=== PATIENT | female | born 1990 | race Caucasian/White ===

== ENCOUNTER 2016-11-12 10:17 | Emergency (ER) | payer MEDICAID ==
[2016-11-12 11:13] VITALS: BP 128/74
--- NOTE | 2016-11-12 12:02 | UC ---
Throat Pain/Nasal Josué HPI - HPI Summary HPI Summary: NASAL CONGESTION X 2 WEEKS\ + SINUS PAIN AND PRESSURE , PND, NO FEVER, NO CHILLS - History of Current Complaint Chief Complaint: UCRespiratory Stated Complaint: COUGH,CONGESTION Time Seen by Provider: 11/12/16 11:54 Hx Obtained From: Patient Hx Last Menstrual Period: 11/10/16 ?: No Onset/Duration: Gradual Onset, Lasting Weeks - 2, Still Present Severity: Moderate Cough: Nonproductive Associated Signs & Symptoms: Positive: Sinus Discomfort, Nasal Discharge. Negative: Fever - Allergies/Home Medications Allergies/Adverse Reactions: Allergies Allergy/AdvReac Type Severity Reaction Status Date / Time Amoxicillin [From Augmentin] Allergy Hives Verified 11/12/16 11:13 Aspirin Allergy Swelling Verified 11/12/16 11:13 Of Face,Lips,& Throat Clavulanic Acid Allergy Hives Verified 11/12/16 11:13 [From Augmentin] Hydrocodone Allergy Hives Verified 11/12/16 11:13 PMH/Surg Hx/FS Hx/Imm Hx Previously Healthy: Yes - Surgical History Surgical History: Yes Surgery Procedure, Year, and Place: LEEP. Essure - Family History Known Family History: Negative: Diabetes - Social History Alcohol Use: None Substance Use Type: None Smoking Status (MU): Heavy Every Day Tobacco Smoker Amount Used/How Often: 1/2 ppd Length of Time of Smoking/Using Tobacco: started age 10 Review of Systems Constitutional: Negative Skin: Negative Eyes: Negative ENT: Sore Throat, Nasal Discharge Respiratory: Cough Cardiovascular: Negative Gastrointestinal: Negative All Other Systems Reviewed And Are Negative: Yes Physical Exam Triage Information Reviewed: Yes Appearance: Well-Appearing, No Pain Distress, Well-Nourished Vital Signs: Initial Vital Signs Temp 98.7 F 11/12/16 11:08 Pulse 89 11/12/16 11:08 Resp 16 11/12/16 11:08 BP 128/74 11/12/16 11:08 Pulse Ox 100 11/12/16 11:08 Vital Signs Reviewed: Yes Eyes: Positive: Conjunctiva Clear ENT: Positive: Normal ENT inspection, Hearing grossly normal, Pharyngeal erythema, Nasal congestion, Nasal drainage, TMs normal Neck exam: Normal Neck: Positive: Supple, Nontender, No Lymphadenopathy Respiratory: Positive: Chest non-tender, Lungs clear, Normal breath sounds, No respiratory distress Cardiovascular: Positive: RRR, No Murmur, Pulses Normal Abdominal Exam: Normal Skin Exam: Normal Throat Pain/Nasal Course/Dx - Differential Dx/Diagnosis Provider Diagnoses: SINUSITIS Discharge - Discharge Plan Condition: Stable Disposition: HOME Prescriptions: Azithromycin TAB* [Zithromax TAB (Z-MARIANN) 250 mg #6 tabs] 2 tab PO .TODAY, THEN 1 DAILY #1 mariann Patient Education Materials: Sinusitis (ED) Forms: *Work Release Referrals: Ag Betts MD [Primary Care Provider] - If Needed
== END 2016-11-12 12:13 | disposition home or self-care (01) ==
LOC: UCCORT 10:17
DX: J32.9 Chronic sinusitis, unspecified (principal); R05 Cough; F17.210 Nicotine dependence, cigarettes, uncomplicated; Z88.5 Allergy status to narcotic agent; Z88.1 Allergy status to other antibiotic agents; Z88.6 Allergy status to analgesic agent
CPT/HCPCS: 99202; G0463

== ENCOUNTER 2019-10-09 08:09 | Emergency (ER) | payer BC, OTHER ==
[2019-10-09 08:29] VITALS: BP 107/68
--- NOTE | 2019-10-09 08:53 | UC ---
Neck Pain HPI - HPI Summary HPI Summary: neck pain x 5 days pain is 4 out of 10 , radiating down the spine worse with neck movement , better with heat, rest, no known injury , no numbness , no tingling of the upper ext. - History of Current Complaint Chief Complaint: UCUpperExtremity Stated Complaint: RT SIDE NECK TO SHOULDER PAIN Time Seen by Provider: 10/09/19 08:24 Hx Obtained From: Patient Hx Last Menstrual Period: 11/10/16 ?: No Onset/Duration Of Injury/Symptoms: Days - 5 Mechanism Of Injury: No Known Trauma Timing: Constant Onset/Duration: Gradual Onset, Lasting Days - 5, Still Present Severity: Moderate Pain Intensity: 4 Location: Discrete At: - righ side of neck Character: Aching, Stiff, Spasmotic Aggravating Factors: Position, Movement Alleviating Factors: Heat Associated Signs & Symptoms: Negative: Swelling, Redness, Bruising, Fever, Nuchal Rigity, Weakness, Headache, Paresthesia - Allergies/Home Medications Allergies/Adverse Reactions: Allergies Allergy/AdvReac Type Severity Reaction Status Date / Time amoxicillin [From Augmentin] Allergy Hives Verified 10/09/19 08:17 aspirin Allergy Swelling Verified 10/09/19 08:17 Of Face,Lips,& Throat clavulanic acid Allergy Hives Verified 10/09/19 08:17 [From Augmentin] hydrocodone Allergy Hives Verified 10/09/19 08:17 Home Medications: Home Medications Acetaminophen [Tylenol Arthritis] 1 tab PO ONCE 10/09/19 [History Confirmed 05/21] Desmopressin TAB (NF) 0.2 mg PO QPM 10/09/19 [History Confirmed 10/09/19] Ibuprofen TAB* [Advil TAB*] 2 tab PO ONCE 10/09/19 [History Confirmed 10/09/19] PMH/Surg Hx/FS Hx/Imm Hx - Additional Past Medical History Additional PMH: cervical dysplasia - Surgical History Surgical History: Yes Surgery Procedure, Year, and Place: LEEP. Essure. hysterectomy. endometriosis - Family History Known Family History: Negative: Diabetes - Social History Alcohol Use: None Substance Use Type: None Smoking Status (MU): Heavy Every Day Tobacco Smoker Amount Used/How Often: 1 ppd Length of Time of Smoking/Using Tobacco: started age 10 Review of Systems All Other Systems Reviewed And Are Negative: Yes Is Patient Immunocompromised?: No Physical Exam Triage Information Reviewed: Yes Appearance: Well-Appearing, Well-Nourished, Pain Distress Vital Signs: Initial Vital Signs Temp 98.7 F 10/09/19 08:24 Pulse 87 10/09/19 08:24 Resp 15 10/09/19 08:24 BP 107/68 10/09/19 08:24 Pulse Ox 97 10/09/19 08:24 Vital Signs Reviewed: Yes Eye Exam: Normal Eyes: Positive: Conjunctiva Clear ENT: Positive: Normal ENT inspection, Hearing grossly normal, Pharynx normal Neck: Positive: Tenderness @ - right side, Other: - limited ROM on rotation to right , pain with neck movement Neck Pain Course/Dx - Differential Dx/Diagnosis Provider Diagnosis: Neck strain Discharge ED - Sign-Out/Discharge Documenting (check all that apply): Patient Departure All imaging exams completed and their final reports reviewed: No Studies - Discharge Plan Condition: Stable Disposition: HOME Prescriptions: Cyclobenzaprine TAB* [Flexeril 10 MG TAB*] 10 mg PO BID #20 tab Naproxen [Naproxen 500 mg tab] 500 mg PO BID #20 tablet Patient Education Materials: Acute Neck Pain (ED) Referrals: Ag Betts MD [Primary Care Provider] - 7 Days - Billing Disposition and Condition Condition: STABLE Disposition: Home
== END 2019-10-09 08:51 | disposition home or self-care (01) ==
LOC: UCCORT 08:09
DX: S16.1XXA Strain of muscle, fascia and tendon at neck level, initial encounter (principal); F17.210 Nicotine dependence, cigarettes, uncomplicated; Z88.0 Allergy status to penicillin; Z88.6 Allergy status to analgesic agent; Z88.5 Allergy status to narcotic agent; X58.XXXA Exposure to other specified factors, initial encounter; Y92.9 Unspecified place or not applicable
CPT/HCPCS: 99212; G0463

== ENCOUNTER 2019-11-16 09:38 | Emergency (ER) | payer OTHER ==
--- OUTSIDE RECORDS SUMMARY | 2019-11-16 09:50 | XMS REPORT ---
:1990 Author Organization [facility] Address [address] [place] [address] Care Team Providers Name Role Phone Ashlyn Mcdonough Unavailable Unavailable PROBLEMS Type Condition ICD9-CM [id number] Onset Condition SNOMED Code Code Code Dates Status Problem Tobacco abuse Z71.6 Active 804692985 counseling Problem Family history of Z80.3 Active 227816771 malignant neoplasm of breast Problem Excessive and N92.1 Active 60371923 frequent menstruation with irregular cycle Problem Primary N94.4 Active 58876698 dysmenorrhea Problem Endometriosis of N80.3 Active 825028911 pelvic peritoneum Problem 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 Problem Periumbilical pain R10.33 Active 908078820 Problem Unspecified N83.201 Active 58127034475799151 ovarian cyst, right side Problem Pelvic and R10.2 Active 661472640 perineal pain Problem 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 Problem Other mechanical T85.698A Active 881659978 complication of other specified internal prosthetic devices, implants and grafts, initial encounter Problem Cervical high risk R87.810 Active 626550531628245 human papillomavirus (HPV) DNA test positive Problem Urge incontinence N39.41 Active 18327117 Problem Other specified N89.8 Active 88049159 noninflammatory disorders of vagina Problem Unspecified N83.202 Active 89794913344020443 ovarian cyst, left side ALLERGIES No Information ENCOUNTERS Encounter Location Date Diagnosis [facility] [address] Nov, OBGYN [place] [id number] [facility] [address] Nov, OBGYN [place] [id number] [facility] [address] Sep, [place] [id number] [facility] [address] Aug, OBGYN [place] [id number] [facility] [address] Aug, [facility]39.[facility] and [place] [id number] to malignant neoplasm of ovary Z15.02 [facility] [address] Jun, [place] [id number] [facility] [address] Jun, [place] [id number] [facility] [address] Jun, OBG[place] [id number] [facility] 103 Jun, [facility] [place] [id number] breast Z15.01 ; Other specified noninflammatory disorders of vagina N89.8 and Urge incontinence N39.41 [facility] [address] Mar, Genetic susceptibility to OBGYN [facility], malignant neoplasm [place] [id number] ovary Z15.02 ; 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 ; Excessive and frequent menstruation with irregular cycle N92.1 ; Primary dysmenorrhea N94.4 ; Pelvic and perineal pain R10.2 and Endometriosis of pelvic peritoneum N80.3 [facility] [address] January, [facility] [place] [id number] ovary Z15.02 ; 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 ; Excessive and frequent menstruation with irregular cycle N92.1 ; Primary dysmenorrhea N94.4 ; Pelvic and perineal pain R10.2 and Endometriosis of pelvic peritoneum N80.3 [place] [address] January, Genetic susceptibility to [facility] [place] [place] [id number] malignant neoplasm of ovary Z15.02 ; 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 ; Excessive and frequent menstruation with irregular cycle N92.1 ; Primary dysmenorrhea N94.4 ; Pelvic and perineal pain R10.2 and Endometriosis of pelvic peritoneum N80.3 [facility] Dec, Excessive and frequent OBGYN [facility], menstruation with [place] [id number] irregular cycle N92.1 ; Endometriosis of pelvic peritoneum N80.3 ; Pelvic and perineal pain R10.2 ; 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 ; 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 ; Family history of malignant neoplasm of breast Z80.3 ; Primary dysmenorrhea N94.4 ; Unspecified ovarian cyst, right side N83.201 and Unspecified ovarian cyst, left side N83.202 [facility] 103 Dec, Excessive and frequent OBGYN [facility], menstruation with [place] [id number] irregular cycle N92.1 ; Unspecified ovarian cyst, right side N83.201 and Unspecified ovarian cyst, left side N83.202 [facility] Dec, Excessive and frequent OBGYN [facility], menstruation with [place] [id number] irregular cycle N92.1 ; Primary dysmenorrhea N94.4 ; Pelvic and perineal pain R10.2 and Endometriosis of pelvic peritoneum N80.3 [facility] [address] Dec, OBGYN [place] [id number] [facility] 103 Dec, Excessive and frequent OBGYN [facility], menstruation with [place] [id number] irregular cycle N92.1 ; Endometriosis of pelvic peritoneum N80.3 ; Pelvic and perineal pain R10.2 and 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 [facility] Dec, Family history of [facility], malignant neoplasm [place] [id number] breast Z80.3 ; 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 ; Endometriosis of pelvic peritoneum N80.3 ; Excessive and frequent menstruation with irregular cycle N92.1 ; Primary dysmenorrhea N94.4 and 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 [facility] 103 Nov, Genetic susceptibility to [facility], malignant neoplasm [place] [id number] breast Z15.01 and Family history of malignant neoplasm of breast Z80.3 [facility] [address] Nov, Encounter for [facility] gynecological examination [place] [id number] (general) (routine) with abnormal findings Z01.411 ; Encounter for screening for malignant neoplasm of cervix Z12.4 ; Cervical high risk human papillomavirus (HPV) DNA test positive R87.810 ; Family history of malignant neoplasm of breast Z80.3 ; 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 ; Endometriosis of pelvic peritoneum N80.3 ; Excessive and frequent menstruation with irregular cycle N92.1 and Primary dysmenorrhea N94.4 [facility] 103 Nov, Primary dysmenorrhea N94.4 [facility], ; Excessive and frequent [place] [id number] menstruation with irregular cycle N92.1 and Pelvic and perineal pain R10.2 [facility] [address] Nov, [place] [id number] [facility] [address] Nov, [place] [id number] [facility] [address] Nov, [place] [id number] [facility] 103 Nov, Periumbilical pain R10.33 [facility], and Other specified [place] [id number] irregular menstruation N92.5 [facility] 103 Nov, OBGYN [place] [id number] [facility] 103 Oct, OBGYN [place] [id number] [facility] 103 Oct, Family history of OBGYN [facility], malignant [place]oplasm [place] [id number] breast Z80.3 ; 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 ; Endometriosis of pelvic peritoneum N80.3 ; Excessive and frequent menstruation with irregular cycle N92.1 and Primary dysmenorrhea N94.4 [facility] 103 Oct, [place] [id number] [facility] 103 Jul, OBGYN [place] [id number] [facility] 103 Jul, Family history of OBGYN [facility], malignant [place]oplasm [place] [id number] breast Z80.3 ; 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 ; Endometriosis of pelvic peritoneum N80.3 ; Excessive and frequent menstruation with irregular cycle N92.1 and Primary dysmenorrhea N94.4 [facility] 103 Jul, Genetic susceptibility to OBGYN [facility], malignant [place]oplasm [place] [id number] breast Z15.01 [place] [address] Jun, Endometriosis of [place] [id number] peritoneum N80.3 ; Pelvic and perineal pain R10.2 ; 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 and Primary dysmenorrhea N94.4 [facility] 103 Jun, Genetic susceptibility to OBGYN [facility], malignant [place]oplasm [place] [id number] breast Z15.01 [facility] 103 Jun, Family history of OBGYN [facility], malignant neoplasm [place] [id number] breast Z80.3 ; 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 ; 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4 and Family history of malignant neoplasm of breast Z80.3 [facility] 103 Apr, Excessive and frequent OBGYN [facility], menstruation with [place] [id number] irregular cycle N92.1 ; Other mechanical complication of other specified internal prosthetic devices, implants and grafts, initial encounter T85.698A and Primary dysmenorrhea N94.4 [facility] 103 Apr, Excessive and frequent OBGYN [facility], menstruation with [place] [id number] irregular cycle N92.1 and Pelvic and perineal pain R10.2 [facility] 103 Apr, Excessive and frequent OBGYN [facility], menstruation with [place] [id number] irregular cycle N92.1 and Primary dysmenorrhea N94.4 [facility] 103 Mar, Noninflammatory disorder OBGYN [facility], of vagina, unspecified [place] [id number] N89.9 [facility] [address] Mar, OBGYN [facility], [place] [id number] [facility] [address] Mar, Other mechanical OBGYN [facility], complication of other [place] [id number] specified internal prosthetic devices, implants and grafts, initial encounter T85.698A and Pelvic and perineal pain R10.2 [facility] Mar, Excessive and frequent OBGYN [facility], menstruation with [place] [id number] irregular cycle N92.1 ; Primary dysmenorrhea N94.4 ; Tobacco abuse counseling Z71.6 ; Family history of malignant neoplasm of breast Z80.3 ; Encounter for screening for malignant neoplasm of cervix Z12.4 and Other specified noninflammatory disorders of vagina N89.8 IMMUNIZATIONS No Known Immunizations SOCIAL HISTORY Never Assessed REASON FOR REFERRAL FUNCTIONAL STATUS PLAN OF CARE VITAL SIGNS MEDICATIONS Unknown Medications PROCEDURES No Known procedures RESULTS No Results REASON FOR VISIT pelvic US for BRCA pos in november Insurance Providers [facility] Member Patient Patient Patient Patient Patient Subscriber Subscriber Subscriber Group Insurance Plan Plan Plan Plan ID Relationship Address Phone Name Date of ID Name Date of No Type Insurance Insurance Insurance Coverage to Subscriber Address Phone Name Dates [phone] [place] [id number] [place] [address] [facility] [address] [place] [phone] [place] self [place] [phone] [id number] Care [place] [address] Care of [facility] [address] [employer] [phone] [employer] self [place] [id number] Blue [id number] Cross/Blue [place] Cross/Blue Shield [id number] Shield MEDICAL (GENERAL) HISTORY Type Description Date Medical History 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
--- OUTSIDE RECORDS SUMMARY | 2019-11-16 09:50 | XMS REPORT ---
:1990 Author Organization [facility] Address [address] [place] [address] Care Team Providers Name Role Phone Ashlyn Mcdonough Unavailable Unavailable PROBLEMS Type Condition ICD9-CM [id number] Onset Condition SNOMED Code Code Code Dates Status Problem Tobacco abuse Z71.6 Active 101593278 counseling Problem Family history of Z80.3 Active 294461766 malignant neoplasm of breast Problem Excessive and N92.1 Active 37329070 frequent menstruation with irregular cycle Problem Primary N94.4 Active 44570898 dysmenorrhea Problem Endometriosis of N80.3 Active 035463581 pelvic peritoneum Problem 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 Problem Periumbilical pain R10.33 Active 665440342 Problem Unspecified N83.201 Active 13055492924309671 ovarian cyst, right side Problem Pelvic and R10.2 Active 829737546 perineal pain Problem 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 Problem Other mechanical T85.698A Active 544633984 complication of other specified internal prosthetic devices, implants and grafts, initial encounter Problem Cervical high risk R87.810 Active 564727901895879 human papillomavirus (HPV) DNA test positive Problem Urge incontinence N39.41 Active 65800363 Problem Other specified N89.8 Active 07581174 noninflammatory disorders of vagina Problem Unspecified N83.202 Active 64520539890000579 ovarian cyst, left side ALLERGIES No Information ENCOUNTERS Encounter Location Date Diagnosis [facility] 103 Nov, OBGYN [place] [id number] [facility] Nov, [place]BG[place], [place] [id number] [facility] [facility] [address] Sep, OBG[place] [id number] [facility] 103 Aug, [place]BG[place], [place] [id number] [facility] 103 Aug, [facility] N39.41 [facility] and Genetic susceptibility [place] [id number] to malignant neoplasm of ovary Z15.02 [facility] 103 Jun, [place] [address] [facility] [facility] 103 Jun, [place] [address] [facility] 103 Jun, OBGYN [place] [id number] [facility] 103 Jun, [facility] [place] [address] breast Z15.01 ; Other specified noninflammatory disorders of vagina N89.8 and Urge incontinence N39.41 [facility] [facility] 103 Mar, Genetic susceptibility to OBGYN 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 ; Excessive and frequent menstruation with irregular cycle N92.1 ; Primary dysmenorrhea N94.4 ; Pelvic and perineal pain R10.2 and Endometriosis of pelvic peritoneum N80.3 [place] [address] January, Genetic susceptibility to [facility] [place] [place] [address] malignant neoplasm of ovary Z15.02 ; 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 ; Excessive and frequent menstruation with irregular cycle N92.1 ; Primary dysmenorrhea N94.4 ; Pelvic and perineal pain R10.2 and Endometriosis of pelvic peritoneum N80.3 [facility] Dec, Excessive and frequent OBGYN 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, menstruation with [place] [id number] irregular cycle N92.1 ; Unspecified ovarian cyst, right side N83.201 and Unspecified ovarian cyst, left side N83.202 [facility] Dec, Excessive and frequent OBGYN [facility], menstruation with [place] [id number] irregular cycle N92.1 ; Primary dysmenorrhea N94.4 ; Pelvic and perineal pain R10.2 and Endometriosis of pelvic peritoneum N80.3 [facility] 103 Dec, OBGYN [place], [place] [id number] [facility] 103 Dec, Excessive and frequent OBGYN 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, malignant [place]oplasm [place] [address] breast Z15.01 and Family history of malignant neoplasm of breast Z80.3 [facility] 103 Nov, Encounter for [facility] gynecological examination [place] [id number] (general) (routine) with abnormal findings Z01.411 ; [...] irregular cycle N92.1 and Primary dysmenorrhea N94.4 [facility] 103 Nov, Primary dysmenorrhea N94.4 [facility], ; Excessive and frequent [place] [id number] menstruation with irregular cycle N92.1 and Pelvic and perineal pain R10.2 [facility] 103 Nov, [place] [address] [facility] 103 Nov, [place] [address] [facility] [facility] 103 Nov, [place] [address] [facility] [facility] 103 Nov, [facility]iumbilical pain R10.33 [facility], and Other specified [place] [id number] irregular menstruation N92.5 [facility] 103 Nov, OBG[place] [id number] [facility] 103 Oct, OBG[place], [place] [id number] [facility] 103 Oct, Family history of OBGYN 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, malignant [place]oplasm [place] [address] breast Z15.01 [facility] [facility] 103 Jun, Family history of OBGYN 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, menstruation with [place] [address] irregular cycle N92.1 and Primary dysmenorrhea N94.4 [facility] 103 May, OBGYN [facility], [place] [address] [facility] 103 Apr, OBGYN [facility], [place] [id number] [facility] [facility] 103 Apr, Excessive and frequent OBGYN [facility], menstruation with [place] [id number] irregular cycle N92.1 ; Primary dysmenorrhea N94.4 and Family history of malignant neoplasm of breast Z80.3 [facility] [facility] 103 Apr, Excessive and frequent OBGYN [facility], menstruation with [place] [id number] irregular cycle N92.1 ; Other mechanical complication of other specified internal prosthetic devices, implants and grafts, initial encounter T85.698A and Primary dysmenorrhea N94.4 [facility] [facility] 103 Apr, Excessive and frequent OBGYN [facility], menstruation with [place] [address] irregular cycle N92.1 and Pelvic and perineal pain R10.2 [facility] [facility] 103 Apr, Excessive and frequent OBGYN [facility], menstruation with [place] [address] irregular cycle N92.1 and Primary dysmenorrhea N94.4 [facility] [facility] 103 Mar, Noninflammatory disorder OBGYN [facility], of vagina, unspecified [place] [id number] N89.9 [facility] 103 Mar, OBGYN [facility], [place] [id number] [facility] 103 Mar, Other mechanical OBGYN [facility], complication of other [place] [address] specified internal prosthetic devices, implants and grafts, initial encounter T85.698A and Pelvic and perineal pain R10.2 [facility] 103 Mar, Excessive and frequent OBGYN [facility], menstruation with [place] [id number] irregular cycle N92.1 ; Primary dysmenorrhea N94.4 [...] procedures RESULTS No Results REASON FOR VISIT Not following up with referral Insurance Providers [facility] Member Patient Patient Patient Patient Patient Subscriber Subscriber Subscriber Group Insurance Plan Plan Plan Plan ID Relationship Address Phone Name Date of ID Name Date of No Type Insurance Insurance Insurance Coverage to Subscriber Address Phone Name Dates [place] [phone] [place] [id number] [place] [address] Care of [facility] [address] [place] [phone] [place] self [place] [id number] Blue [id number] 89 [place] 8 Cross/Blue [place] Cross/Blue Shield [address] Shield [place] [phone] [place] self [place] [phone] [id number] Care [place] [address] Care of [facility] [phone] MEDICAL (GENERAL) HISTORY Type Description Date Medical History 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
--- OUTSIDE RECORDS SUMMARY | 2019-11-16 09:50 | XMS REPORT ---
:1990 Author Organization [facility] Address [address] [place] [address] Care Team Providers Name Role Phone Ashlyn Mcdonough Unavailable Unavailable PROBLEMS Type Condition ICD9-CM [id number] Onset Condition SNOMED Code Code Code Dates Status Problem Tobacco abuse Z71.6 Active 200081322 counseling Problem Family history of Z80.3 Active 387457450 malignant neoplasm of breast Problem Excessive and N92.1 Active 71927460 frequent menstruation with irregular cycle Problem Primary N94.4 Active 25905150 dysmenorrhea Problem Endometriosis of N80.3 Active 124029565 pelvic peritoneum Problem 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 970636764 susceptibility to malignant neoplasm of breast Problem Periumbilical pain R10.33 Active 383382587 Problem Unspecified N83.201 Active 77884606936772600 ovarian cyst, right side Problem Pelvic and R10.2 Active 788503531 perineal pain Problem 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 01640844594098 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 Problem Other mechanical T85.698A Active 682659531 complication of other specified internal prosthetic devices, implants and grafts, initial encounter Problem Cervical high risk R87.810 Active 344047002765307 human papillomavirus (HPV) DNA test positive Problem Urge incontinence N39.41 Active 32648171 Problem Other specified N89.8 Active 66841145 noninflammatory disorders of vagina Problem Unspecified N83.202 Active 32485011865068473 ovarian cyst, left side ALLERGIES No Information ENCOUNTERS Encounter Location Date Diagnosis [facility] 103 Nov, OBGYN [place], [place] [id number] [facility] 103 Nov, OBG[place], [place] [id number] [place] [facility] 103 Sep, OBG[place] [id number] [place] [facility] 103 Aug, OBG[place] [id number] [place] [facility] 103 Aug, [facility] N39.41 [facility] and Genetic susceptibility [place] [address] to malignant neoplasm of ovary Z15.02 [facility] 103 Jun, [place] [address] [place] [facility] 103 Jun, [place] [address] [place] [facility] 103 Jun, OBGYN [place] [address] [place] [facility] 103 Jun, [facility] [place] [address] breast Z15.01 ; Other specified noninflammatory disorders of vagina N89.8 and Urge incontinence N39.41 [place] [facility] 103 Mar, Genetic susceptibility to OBGYN [facility], malignant neoplasm [place] [address] ovary Z15.02 ; 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 ; Excessive and frequent menstruation with irregular cycle N92.1 ; Primary dysmenorrhea N94.4 ; Pelvic and perineal pain R10.2 and Endometriosis of pelvic peritoneum N80.3 [place] [facility] 103 January, [facility] [place] [address] ovary Z15.02 ; 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 ; Excessive and frequent menstruation with irregular cycle N92.1 ; Primary dysmenorrhea N94.4 ; Pelvic and perineal pain R10.2 and Endometriosis of pelvic peritoneum N80.3 [place] [address] January, Genetic susceptibility to [facility] [place] [place] [address] malignant neoplasm of ovary Z15.02 ; 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 ; Excessive and frequent menstruation with irregular cycle N92.1 ; Primary dysmenorrhea N94.4 ; Pelvic and perineal pain R10.2 and Endometriosis of pelvic peritoneum N80.3 [facility]Note 3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 ; Family history of malignant neoplasm of breast Z80.3 ; Primary dysmenorrhea N94.4 ; Unspecified ovarian cyst, right side N83.201 and Unspecified ovarian cyst, left side N83.202 [facility] 103 Dec, Excessive and frequent OBGYN [facility], menstruation with [place] [address] irregular cycle N92.1 ; Unspecified ovarian cyst, right side N83.201 and Unspecified ovarian cyst, left side N83.202 [facility]Note 3[facility] 103 Dec, Excessive and frequent OBGYN [facility], menstruation with [place] [id number] irregular cycle N92.1 ; Primary dysmenorrhea N94.4 ; Pelvic and perineal pain R10.2 and Endometriosis of pelvic peritoneum N80.3 [facility] 103 Dec, OBGYN [place], [place] [id number] [facility] 103 Dec, Excessive and frequent OBGYN [facility], menstruation with [place] [id number] irregular cycle N92.1 ; Endometriosis of pelvic peritoneum N80.3 ; Pelvic and perineal pain R10.2 and 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 [facility]Note 3[facility] 103 Dec, Family history of [facility], malignant neoplasm [place] [address] breast Z80.3 ; 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 ; Endometriosis of pelvic peritoneum N80.3 ; Excessive and frequent menstruation with irregular cycle N92.1 ; Primary dysmenorrhea N94.4 and 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 [place] [facility] 103 Nov, Genetic susceptibility to [facility], [place]oplasm [place] [address] breast Z15.01 and Family history of malignant neoplasm of breast Z80.3 [place] [facility] 103 Nov, Encounter for [facility] gynecological examination [place] [id number] (general) (routine) with abnormal findings Z01.411 ; [...] irregular cycle N92.1 and Primary dysmenorrhea N94.4 [place] [facility] 103 Nov, Primary dysmenorrhea N94.4 [facility], ; Excessive and frequent [place] [address] menstruation with irregular cycle N92.1 and Pelvic and perineal pain R10.2 [place] [facility] 103 Nov, [place], [place] [id number] [place] [facility] 103 Nov, [place] [address] [place] [facility] 103 Nov, [place], [place] [address] [place] [facility] 103 Nov, Periumbilical pain R10.33 [facility], and Other specified [place] [address] irregular menstruation N92.5 [place] [facility] 103 Nov, OBGYN [place] [address] [place] [facility] 103 Oct, OBG[place] [address] [place] [facility] 103 Oct, Family history of OBGYN [facility], malignant [place]oplasm [place] [address] breast Z80.3 ; 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 ; Endometriosis of pelvic peritoneum N80.3 ; Excessive and frequent menstruation with irregular cycle N92.1 and Primary dysmenorrhea N94.4 [place] [facility] 103 Oct, OBGYN [place] [address] [place] [facility] 103 Jul, OBG[place] [id number] [place] [facility] 103 Jul, Family history of OBGYN [facility], malignant [place]oplasm [place] [address] breast Z80.3 ; 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 ; Endometriosis of pelvic peritoneum N80.3 ; Excessive and frequent menstruation with irregular cycle N92.1 and Primary dysmenorrhea N94.4 [place] [facility] 103 Jul, Genetic susceptibility to OBGYN [facility], malignant [place]oplasm [place] [address] breast Z15.01 [place] [address] Jun, Endometriosis of [place], [place] [address] peritoneum N80.3 ; Pelvic and perineal pain R10.2 ; 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 and Primary dysmenorrhea N94.4 [place] [facility] 103 Jun, Genetic susceptibility to OBGYN [facility], malignant neoplasm of [place] [address] breast Z15.01 [place] [facility] 103 Jun, Family history of OBGYN [facility], malignant neoplasm of [place] [address] breast Z80.3 ; 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 ; 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 and Genetic susceptibility to other disease Z15.89 [place] [facility] 103 Jun, Excessive and frequent OBGYN [facility], menstruation with [place] [address] irregular cycle N92.1 and Primary dysmenorrhea N94.4 [place] [facility] 103 May, OBGYN [facility] [address] [place] [facility] 103 Apr, OBGYN [facility], [place] [address] [place] [facility] 103 Apr, Excessive and frequent OBGYN [facility], menstruation with [place] [address] irregular cycle N92.1 ; Primary dysmenorrhea N94.4 and Family history of malignant neoplasm of breast Z80.3 [place] [facility] 103 Apr, Excessive and frequent OBGYN [facility], menstruation with [place] [id number] irregular cycle N92.1 ; Other mechanical complication of other specified internal prosthetic devices, implants and grafts, initial encounter T85.698A and Primary dysmenorrhea N94.4 [place] [facility] 103 Apr, Excessive and frequent OBGYN [facility], menstruation with [place] [address] irregular cycle N92.1 and Pelvic and perineal pain R10.2 [place] [facility] 103 Apr, Excessive and frequent OBGYN [facility], menstruation with [place] [id number] irregular cycle N92.1 and Primary dysmenorrhea N94.4 [place] [facility] 103 Mar, Noninflammatory disorder OBGYN [facility], of vagina, unspecified [place] [address] N89.9 [place] [facility] 103 Mar, OBGYN [facility], [place] [address] [place] [facility] 103 Mar, Other mechanical OBGYN [facility], complication of other [place] [address] specified internal prosthetic devices, implants and grafts, initial encounter T85.698A and Pelvic and perineal pain R10.2 [place] [facility] Mar, Excessive and frequent OBGYN [facility], menstruation with [place] [address] irregular cycle N92.1 ; Primary dysmenorrhea N94.4 [...] procedures RESULTS No Results REASON FOR VISIT Let pt know recent breast MRI wnl. Insurance Providers [facility] Member Patient Patient Patient Patient Patient Subscriber Subscriber Subscriber Group Insurance Plan Plan Plan Plan ID Relationship Address Phone Name Date of ID Name Date of No Type Insurance Insurance Insurance Coverage to Subscriber Address Phone Name Dates [phone] [place] self [place] [id number] [place] [address] Care of [facility] [phone] [place] [phone] [place] self [place] [id number] Blue [id number] 89 Blue [place] 8 Cross/Blue [place] Cross/Blue Shield [address] Shield [place] [phone] [place] self [place] [id number] Care [place] [address] Care of [facility] [phone] MEDICAL (GENERAL) HISTORY Type Description Date Medical History 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
--- OUTSIDE RECORDS SUMMARY | 2019-11-16 09:50 | XMS REPORT ---
:1990 Author Name Terri Aquino Address [address] [place] [address] Care Team Providers Name Role Phone Terri Aquino Unavailable Unavailable PROBLEMS Type Condition ICD9-CM XTB95-DI Onset Condition SNOMED Code Code Code Dates Status Problem Tobacco abuse Z71.6 Active 697943603 counseling Problem Family history of Z80.3 Active 614317659 malignant neoplasm of breast Problem Excessive and N92.1 Active 87960306 frequent menstruation with irregular cycle Problem Primary N94.4 Active 12451764 dysmenorrhea Problem Endometriosis of N80.3 Active 309644060 pelvic peritoneum Problem 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 Problem Periumbilical pain R10.33 Active 928498195 Problem Unspecified N83.201 Active [id number] ovarian cyst, right side Problem Pelvic and R10.2 Active 439748502 perineal pain Problem 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 Problem Other mechanical T85.698A Active 044744011 complication of other specified internal prosthetic devices, implants and grafts, initial encounter Problem Cervical high risk R87.810 Active 495449988076230 human papillomavirus (HPV) DNA test positive Problem Urge incontinence N39.41 Active 53040811 Problem Other specified N89.8 Active 64678580 noninflammatory disorders of vagina Problem Unspecified N83.202 Active 80225242655920004 ovarian cyst, left side ALLERGIES Substance Reaction Event Type Date Status aspirin lips swell Drug Allergy Aug, Active codeine hives Drug Allergy Aug, Active Augmentin hives Drug Allergy Aug, Active adhesive tape burn skin Drug Allergy Aug, Active ENCOUNTERS Encounter Location Date Diagnosis [facility] Nov, [place] [id number] [facility] Nov, [place] [id number] [facility] Sep, [place] [id number] [facility] Aug, [place] [id number] [facility] Aug, Urge [facility]ence N39.41 [facility], and Genetic susceptibility [place] [id number] to malignant neoplasm of ovary Z15.02 [facility] Jun, [place] [id number] [facility] Jun, [place] [id number] [facility] Jun, [place] [id number] [facility] Jun, Genetic susceptibility to OBG[facility], malignant neoplasm [place] [id number] breast Z15.01 ; Other specified noninflammatory disorders of vagina N89.8 and Urge incontinence N39.41 [facility] Mar, Genetic susceptibility to OBGYN [facility], malignant [place]oplasm [place] [id number] ovary Z15.02 ; 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 ; Excessive and frequent menstruation with irregular cycle N92.1 ; Primary dysmenorrhea N94.4 ; Pelvic and perineal pain R10.2 and Endometriosis of pelvic peritoneum N80.3 [facility] January, Genetic susceptibility to OBG[facility], malignant [place]oplasm [place] [id number] ovary Z15.02 ; 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 ; Excessive and frequent menstruation with irregular cycle N92.1 ; Primary dysmenorrhea N94.4 ; Pelvic and perineal pain R10.2 and Endometriosis of pelvic peritoneum N80.3 [place] [address] [place] January, Genetic susceptibility to [facility] [place] [id number] malignant neoplasm of ovary Z15.02 ; 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 ; Excessive and frequent menstruation with irregular cycle N92.1 ; Primary dysmenorrhea N94.4 ; Pelvic and perineal pain R10.2 and Endometriosis of pelvic peritoneum N80.3 [facility] Dec, Excessive and frequent OBGYN [facility], menstruation with [place] [id number] irregular cycle N92.1 ; Endometriosis of pelvic peritoneum N80.3 ; Pelvic and perineal pain R10.2 ; 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 ; 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 ; Family history of malignant neoplasm of breast Z80.3 ; Primary dysmenorrhea N94.4 ; Unspecified ovarian cyst, right side N83.201 and Unspecified ovarian cyst, left side N83.202 [facility] Dec, Excessive and frequent OBGYN [facility], menstruation with [place] [id number] irregular cycle N92.1 ; Unspecified ovarian cyst, right side N83.201 and Unspecified ovarian cyst, left side N83.202 [facility] 103 Dec, Excessive and frequent OBGYN [facility], menstruation with [place] [id number] irregular cycle N92.1 ; Primary dysmenorrhea N94.4 ; Pelvic and perineal pain R10.2 and Endometriosis of pelvic peritoneum N80.3 [facility] [address] Dec, [place]BG[place] [id number] [facility] 103 Dec, Excessive and frequent OBGYN [facility], menstruation with [place] [id number] irregular cycle N92.1 ; Endometriosis of pelvic peritoneum N80.3 ; Pelvic and perineal pain R10.2 and 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 [facility] Dec, Family history of [facility], malignant neoplasm of [place] [id number] breast Z80.3 ; 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 ; Endometriosis of pelvic peritoneum N80.3 ; Excessive and frequent menstruation with irregular cycle N92.1 ; Primary dysmenorrhea N94.4 and 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 [facility] 103 Nov, Genetic susceptibility to OBGYN [facility], malignant [place]oplasm [place] [id number] breast Z15.01 and Family history of malignant neoplasm of breast Z80.3 [facility] Nov, Encounter for [facility], gynecological examination [place] [id number] (general) (routine) with abnormal findings Z01.411 ; [...] irregular cycle N92.1 and Primary dysmenorrhea N94.4 [facility] 103 Nov, Primary dysmenorrhea N94.4 [facility], ; Excessive and frequent [place] [id number] menstruation with irregular cycle N92.1 and Pelvic and perineal pain R10.2 [facility] Nov, [place] [id number] [facility] Nov, [place] [id number] [facility] Nov, [place] [id number] [facility] 103 Nov, Periumbilical pain R10.33 [facility], and Other specified [place] [id number] irregular menstruation N92.5 [facility] [address] Nov, [place] [id number] [facility] Oct, [place] [id number] [facility] 103 Oct, Family history of OBG[facility], malignant neoplasm of [place] [id number] breast Z80.3 ; 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 ; Endometriosis of pelvic peritoneum N80.3 ; Excessive and frequent menstruation with irregular cycle N92.1 and Primary dysmenorrhea N94.4 [facility] Oct, [place] [id number] [facility] Jul, [place] [id number] [facility] [address] Jul, Family history of [facility], malignant neoplasm [place] [id number] breast Z80.3 ; 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 ; Endometriosis of pelvic peritoneum N80.3 ; Excessive and frequent menstruation with irregular cycle N92.1 and Primary dysmenorrhea N94.4 [facility] [address] Jul, Genetic susceptibility to OBG[facility], malignant neoplasm [place] [id number] breast Z15.01 [facility] [address] Jun, Endometriosis of [facility] [place] [id number] peritoneum N80.3 ; Pelvic and perineal pain R10.2 ; 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 and Primary dysmenorrhea N94.4 [facility] [address] Jun, Genetic susceptibility to OBGYN [facility], malignant [place]oplasm [place] [id number] breast Z15.01 [facility] Jun, Family history of [facility]BG[facility], [place] [id number] breast Z80.3 ; 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 ; 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 and Genetic susceptibility to other disease Z15.89 [facility] Jun, Excessive and frequent OBGYN [facility], menstruation with [place] [id number] irregular cycle N92.1 and Primary dysmenorrhea N94.4 [facility] [address] May, OBGYN [facility], [place] [id number] [facility] [address] Apr, OBGYN [facility], [place] [id number] [facility] [address] Apr, Excessive and frequent OBGYN [facility], menstruation [place] [id number] irregular cycle N92.1 ; Primary dysmenorrhea N94.4 and Family history of malignant neoplasm of breast Z80.3 [facility] [address] Apr, Excessive and frequent OBGYN [facility], menstruation with [place] [id number] irregular cycle N92.1 ; Other mechanical complication of other specified internal prosthetic devices, implants and grafts, initial encounter T85.698A and Primary dysmenorrhea N94.4 [facility] [address] Apr, Excessive and frequent OBGYN [facility], menstruation with [place] [id number] irregular cycle N92.1 and Pelvic and perineal pain R10.2 [facility] [address] Apr, Excessive and frequent OBGYN [facility], menstruation with [place] [id number] irregular cycle N92.1 and Primary dysmenorrhea N94.4 [facility] Mar, [facility], of vagina, unspecified [place] [id number] N89.9 [facility] Mar, OBGYN [facility], [place] [id number] [facility] Mar, Other mechanical OBGYN [facility], complication of other [place] [id number] specified internal prosthetic devices, implants and grafts, initial encounter T85.698A and Pelvic and perineal pain R10.2 [facility] 103 Mar, Excessive and frequent OBGYN [facility], menstruation with [place] [id number] irregular cycle N92.1 ; Primary dysmenorrhea N94.4 ; Tobacco abuse counseling Z71.6 ; Family history of malignant neoplasm of breast Z80.3 ; Encounter for screening for malignant neoplasm of cervix Z12.4 and Other specified noninflammatory disorders of vagina N89.8 IMMUNIZATIONS No Known Immunizations SOCIAL HISTORY Never Assessed REASON FOR REFERRAL FUNCTIONAL STATUS PLAN OF CARE Activity Details Follow Up change CBE appt in November to an annual and add US to the appt as well Reason: VITAL SIGNS Height 68 in 2019-08-09 Weight 148 lbs 2019-08-09 BMI 22.50 kg/m2 2019-08-09 Blood pressure systolic 110 mm Hg 2019-08-09 Blood pressure diastolic 70 mm Hg 2019-08-09 MEDICATIONS Medication Instructions Dosage Frequency Start End Date Duration Status Date Ranitidine Active Chantix 0.5 mg orally 2 times a 1 tab(s) 12h Active day albuterol 2 puffs Active inhaler 90 ug/inhalation Zyrtec 10 mg orally once a 1 tab(s) 24h Active day Benadryl 25 mg orally 3 times a 1 cap(s) 8h Active day desmopressin 0.2 orally 2 times a 1 tab(s) 12h 30 day(s) Active mg day Claritin 5 mg chewed once a 1 tab(s) 24h Active day PROCEDURES No Known procedures RESULTS No Results REASON FOR VISIT 2 Months OAB f/u Insurance Providers [facility] Member Patient Patient Patient Patient Patient Subscriber Subscriber Subscriber Group Insurance Plan Plan Plan Plan ID Relationship Address Phone Name Date of ID Name Date of No Type Insurance Insurance Insurance Coverage to Subscriber Address Phone Name Dates Shadi Barba [phone] Shadi Haro [id number] [address] [address] [place] [phone] Shadi self Estrellita [id number] [place] [address] Care of [facility] [address] [place] [phone] [place] self Estrellita [id number] Blue [id number] [address] Cross/Blue [place] Cross/Blue Shield [id number] Shield MEDICAL (GENERAL) HISTORY Type Description Date Medical History 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
[2019-11-16 10:22] VITALS: BP 112/70
--- NOTE | 2019-11-16 10:45 | UC ---
Upper Extremity HPI - HPI Summary HPI Summary: left arm / left elbow pain x 1 days pain is 8 out 10 ,radiating to her hand, worse with flexing her elbow , better with elbow extension no known injury , no swelling, having bruising of the left hand no numbness / no tingling - History of Current Complaint Chief Complaint: UCUpperExtremity Stated Complaint: LEFT ELBOW PAIN Time Seen by Provider: 11/16/19 10:27 Hx Obtained From: Patient Hx Last Menstrual Period: January 2019 ?: No Onset/Duration: Gradual Onset, Lasting Days - 1, Still Present Severity Initially: Moderate Severity Currently: Moderate Pain Intensity: 0 Pain Scale Used: 0-10 Numeric Location Of Pain: Is Discrete @ - left arm Character: Aching Aggravating Factor(s): Movement, Flexion Alleviating Factor(s): Other: - extension of the arm Associated Signs And Symptoms: Positive: Bruising. Negative: Swelling, Redness , Fever, Weakness, Numbness/Tingling - Allergies/Home Medications Allergies/Adverse Reactions: Allergies Allergy/AdvReac Type Severity Reaction Status Date / Time adhesive tape Allergy See Comment Verified 11/16/19 10:22 amoxicillin [From Augmentin] Allergy Hives Verified 10/09/19 08:17 aspirin Allergy Swelling Verified 10/09/19 08:17 Of Face,Lips,& Throat clavulanic acid Allergy Hives Verified 10/09/19 08:17 [From Augmentin] hydrocodone Allergy Hives Verified 10/09/19 08:17 PMH/Surg Hx/FS Hx/Imm Hx - Additional Past Medical History Additional PMH: endometreosis has high genetic component for breast cancer - Surgical History Surgical History: Yes Surgery Procedure, Year, and Place: LEEP. [facility]. hysterectomy. endometriosis - Family History Known Family History: Negative: Diabetes - Social History Alcohol Use: None Substance Use Type: None Smoking Status (MU): Heavy Every Day Tobacco Smoker Amount Used/How Often: 1 ppd Length of Time of Smoking/Using Tobacco: started age 10 Review of Systems All Other Systems Reviewed And Are Negative: Yes Is Patient Immunocompromised?: No Physical Exam Triage Information Reviewed: Yes Appearance: Well-Appearing, No Pain Distress, Well-Nourished Vital Signs: Initial Vital Signs Temp 98.0 F 11/16/19 10:16 Pulse 70 11/16/19 10:16 Resp 18 11/16/19 10:16 BP 112/70 11/16/19 10:16 Pulse Ox 100 11/16/19 10:16 Vital Signs Reviewed: Yes Eye Exam: Normal ENT: Positive: Normal ENT inspection, Hearing grossly normal, Pharynx normal Neck: Positive: Supple, Nontender, No Lymphadenopathy Respiratory Exam: Normal Respiratory: Positive: Chest non-tender, Lungs clear Cardiovascular: Positive: RRR, No Murmur, Pulses Normal Musculoskeletal: Positive: Other: - left arm / elbow : no swelling, no erythema , + diffuse tenderness, pain with flexion , better with extension , good distal pulses , normal strength Skin Exam: Normal Upper Extremity Course/Dx - Differential Dx/Diagnosis Provider Diagnosis: Left arm pain Discharge ED - Sign-Out/Discharge Documenting (check all that apply): Patient Departure All imaging exams completed and their final reports reviewed: No Studies - Discharge Plan Condition: Stable Disposition: HOME Prescriptions: predniSONE 20 mg TAB [Deltasone 20 MG TAB*] 40 mg PO DAILY #10 tab Patient Education Materials: Arm Pain (ED) Referrals: Ag Betts MD [Primary Care Provider] - 7 Days Additional Instructions: left arm pain , most likely due to a pinched nerve cont. with rest, try not to flex your left arm for few days may take Tylenol as needed for pain Prednisone 40 mg daily x 5 days follow up with your pcp in 7 to 10 days - Billing Disposition and Condition Condition: STABLE Disposition: Home
== END 2019-11-16 10:38 | disposition home or self-care (01) ==
LOC: UCCORT 09:38
DX: M79.602 Pain in left arm (principal); F17.210 Nicotine dependence, cigarettes, uncomplicated; Z15.01 Genetic susceptibility to malignant neoplasm of breast; Z91.09 Other allergy status, other than to drugs and biological substances; Z88.0 Allergy status to penicillin; Z88.6 Allergy status to analgesic agent; Z88.5 Allergy status to narcotic agent
CPT/HCPCS: 99212; G0463